=== PATIENT | male | born 1985 | race Caucasian/White ===

== ENCOUNTER 2020-01-23 13:29 | Inpatient (IN) | payer BC ==
[~2020-01-23] VITALS: Ht 175.3 cm; Wt 84.4 kg
[2020-01-23 13:51] VITALS: BP 127/97
[2020-01-23 14:15] LABS: ABSOLUTE NEUTROPHILS 5.5 thou/uL (1.4-8.2); BASOPHILS 0.3 % (0.0-2.0); HEMOGLOBIN 15.3 gm/dL (14.0-18.0); LYMPHOCYTES 10.7 % (24.0-44.0); MCH 33.1 pg (26.0-34.0); MCV 97.2 fL (80.0-100.0); MONOCYTES 6.1 % (1.0-8.0); PLATELET COUNT 206 thou/uL (150-400); POLYS 82.9 % (36.0-66.0); RBC 4.63 mil/uL (4.50-6.00); WBC 6.6 thou/uL (4.0-11.0)
[2020-01-23 14:25] LABS: CALCIUM 9.8 mg/dL (8.5-10.1); CREATININE 1.1 mg/dL (0.7-1.3)
[2020-01-23 14:30] LABS: ALBUMIN 4.5 g/dL (3.4-5.0); TOTAL BILIRUBIN 1.2 mg/dL (0.2-1.0); TOTAL PROTEIN 9.2 g/dL (6.4-8.2)
[2020-01-23 15:56] LABS: URINE BILIRUBIN NEGATIVE (Negative); URINE BLOOD 1+ (Negative); URINE CLARITY CLEAR; URINE COLOR YELLOW; URINE GLUCOSE-RANDOM* NEGATIVE (Negative); URINE KETONES 3+ (Negative); URINE LEUKOCYTES-REFLEX NEGATIVE (Negative); URINE NITRITE-REFLEX NEGATIVE (Negative); URINE PROTEIN (DIPSTICK) 1+ (Negative); URINE SPECIFIC GRAVITY >= 1.030 (1.005-1.035); URINE UROBILINOGEN 0.2 E.U./dl (0.2-1.0)
[2020-01-23 16:02] LABS: AMP/METHAMP Negative (Negative); BARBITURATES Negative (Negative); BENZODIAZEPINES Negative (Negative); COCAINE Negative (Negative); METHADONE Negative (Negative); OPIATES Negative (Negative); PCP Negative (Negative)
[2020-01-23 16:18] LABS: BACTERIA-REFLEX None Seen /HPF (None Seen); CRYSTALS None Seen /LPF (None Seen); SQUAMOUS None Seen /LPF (0-3); URINE RBC None Seen /HPF (0-2); URINE WBC-REFLEX None Seen /HPF (0-5)
[2020-01-23 17:00] LABS: BE(vivo) -11.3 mmol/L (-2 to +3); HCO3 13.2 mmol/L (22.0-26.0); PCO2 26.6 mmHg (35.0-45.0); PO2 108.3 mmHg (80.0-100.0); pH 7.312 (7.360-7.450); sO2 97.6 % (92.0-98.0)
--- NOTE | 2020-01-23 17:03 | EKG ---
[facility] [place] [address] ELECTROCARDIOGRAM REPORT Name: ALLEY ULLOA Room #: [facility].#: [id number] Admission: 01/23/20 Attend Phys: Discharge: Date of : 81 Report #: [id number] THIS REPORT FOR: cc: NASH Flores family physician/PCP NASH - Sandra family physician/PCP Pasquale Amaro MD [facility] THIS REPORT FOR: //name// [facility] ED Test Date: 2020-01-23 Test Time: 13:44:28 Pat Name: ALLEY ULLOA Department: Room: Gender: Licensing Registration Examiner: : 1985 Requested By: Marquise Arroyo Order Number: [id number] MD: Pasquale Amaro Measurements Intervals [place] Rate: 134 P: 82 MT: 129 QRS: 89 QRSD: 85 T: -7 QT: 308 QTc: 460 Interpretive Statements Sinus tachycardia Probable left atrial enlargement Probable left ventricular hypertrophy Baseline wander in lead(s) I,II,aVR,V1,V2 No previous ECG available for comparison Electronically Signed On 01-23-2020 17:02:59 VIDEO TAPE DUPLICATOR by Pasquale Amaro [email or web address] <ELECTRONICALLY SIGNED> By: Pasquale Amaro MD, FACC 01/23/20 1702 1344 1344 Pasquale Amaro MD, FAC /EPI
[2020-01-23 19:14] VITALS: BP 115/101
[2020-01-23 19:27] VITALS: BP 115/101
--- NOTE | 2020-01-24 00:21 | NUR ---
PATIENT IS A NEW ADMISSION TO THE UNIT THIS SHIFT. HE ARRIVED VIA CART FROM THE ER AND WAS ABLE TO AMBULATE TO THE BED UNASSISTED WITHOUT INCIDENT. PATIENT IS ALERT AND ORIENTED BUT HIGHLY ANXIOUS. PATIENT WAS RELUCTANT TO STAY AT HOSPITAL AND NEEDED TO CONVERSE WITH ELECTROMECHANICAL TECHNICIAN. HE DID AGREE TO STAY IN HOSPITAL AND RECEIVE TREATMENT. DURING ADMISSION PATIENT STATED FEELING BODY ACHES AND CHILLS PRIOR TO COMING TO HOSPITAL WELL THE KNOWN ABOUT NAUSEA. CLINICAL PHARMACY SPECIALIST CONTACTED WITH ORDERS RECEIVED FOR COVID SWAB. PATIENT IS UNABLE TO BE MOVED PRESENTLY DUE TO COVID UNIT HAVING NO VACANCIES. PATIENT EXHIBITS TREMORS AND IS GOING THROUGH ALCOHOL WITHDRAWAL. THIS NURSE TO FULLY COMPLETE ADMISSION PROCESS AND INITIATE PLAN OF CARE. CARE HAS BEEN TRANSFERRED TO RN [facility] DUE THIS NURSES INABILITY TO WEAR N95.
[2020-01-24 04:17] VITALS: BP 108/70
--- NOTE | 2020-01-24 04:23 | NUR ---
Assumed pt care at midnight. On assessment at this time pt is A/OX4,resting calmly,drowsy,no tremors noted.Denies any nausea or headache and would like to go back to sleep for a while.Assessment as charted. Fall precautions implemented,pt agrees to call for help before getting out of bed. IVF infusisng via RAC w/o any problems noted. SR on telemetry. Covid results still pending;proper PPE worn before entering pt's room.
[2020-01-24 06:56] LABS: ALBUMIN 3.6 g/dL (3.4-5.0); CALCIUM 8.5 mg/dL (8.5-10.1); CREATININE 1.1 mg/dL (0.7-1.3); POTASSIUM 3.8 mmol/L (3.5-5.1)
--- NOTE | 2020-01-24 07:12 | NUR ---
ASSESSED CIWA FOR 4W RN EVERY 2-3 HOURS. ATIVAN GIVEN PER PROTOCOL. PATIENT LESS ANXIOUS TO LEAVE. STATES JUST WANTS TO KNOW WHAT IS GOING ON. THINKS HAS BEEN DREAMING OR THINKING ABOUT PROGRAM TO GET OFF ETOH BUT STATES IS CONFUSED ABOUT WHAT IS HAPPENING TO HIM. IS A/O X4 BUT UNSURE OF REASON FOR HOSPITAL STAY AND WHAT WILL HAPPEN AFTER HIS STAY.
[2020-01-24 08:20] VITALS: BP 118/78
--- NOTE | 2020-01-24 11:28 | NUR ---
LONG DISCUSSION THIS AM ON LIFESTYLE AND COPING MECHANISM DURING COVID OTHER THEN DRINKING. HE IS VERY HYPER FOCUSED ON HIS HEALTH NOW AND LABS SO EXPLAINED TO HIM THAT THIS WILL NOT CONTINUE TO REBOUND IF HE CONTINUES TO DRINK VODKA IN LARGE AMOUNTS EVERYDAY, SOMEWHAT OPEN TO THE TOPIC BUT A DISCONNECT IN CORRELATION ON DRINKING AND POOR OUTCOMES STILL REMAIN. DENIES AND TREMORS, NONE OBSERVED. CWAL OF =1 FOR ME, VERY CALM OVERALL AND SLEEPING THIS AM. EKG IN WNL, NSR.
[2020-01-24 12:00] VITALS: BP 125/79
[2020-01-24 17:00] VITALS: BP 117/79
--- NOTE | 2020-01-24 17:00 | NUR ---
RESTING WITH EYES CLOSED, OPENS HIS EYES TO AROUSAL AND QUESTIONS. DENIES ANY PAIN, NO TREMORS CWAL=2 AT THIS TIME, BLOOD PRESSURES STABALIZED. AT BEDSIDE.
[2020-01-24 20:25] VITALS: BP 122/95
[2020-01-25 03:27] VITALS: BP 116/83
--- NOTE | 2020-01-25 06:24 | NUR ---
CARE ASSUMED 1900. PT SCORES 0 ON CIWA ASSESSMENTS. VITALS STABLE. PT HAD A SHOWER. NO C/O CHEST PAIN , NAUSEA OR VOMITING. C/O X1 OD DIZZINESS OTHERWISE NORMAL GAIT. AT AROUND 3 AM, PT STATED THAT HE DOES NOT WANT TO CONTINUE WITH IV FLUIDS BECAUSE HE IS DRINKING AND EATING FINE CURRENTLY AND READY DO DC. WILL CONTINUE WITH POCC
[2020-01-25 08:50] VITALS: BP 135/63
[2020-01-25] MEDS ORDERED: CHLORDIAZEPOXIDE5 M2 PO (09:54)
[2020-01-25] MEDS ORDERED: PRENATAL PO (09:54)
[2020-01-25] MEDS ORDERED: VITAMIN B-1100 M2 PO (09:54)
[2020-01-25 10:26] VITALS: BP 135/63
[2020-01-25 10:34] VITALS: BP 135/63
--- NOTE | 2020-01-25 10:40 | NUR ---
Ethol tx resources and program info noted in the pt's dc instructions should he wish to pursue inpt or outpt tx.
== END 2020-01-25 12:45 | disposition home or self-care (01) | DRG 897 ==
LOC: ER 13:29 → EROBS 18:51 → 2N 18:51
PROVIDERS: Physician Assistant; ADMIT Hospitalist; ATTEND Hospitalist
DX: F10.239 Alcohol dependence with withdrawal, unspecified (principal); E87.2 Acidosis; K76.0 Fatty (change of) liver, not elsewhere classified; F41.9 Anxiety disorder, unspecified; Z20.828 Contact with and (suspected) exposure to other viral communicable diseases; Z87.891 Personal history of nicotine dependence; Z79.899 Other long term (current) drug therapy
CPT/HCPCS: 10081

== ENCOUNTER 2020-08-22 02:24 | Emergency (ER) | payer BC ==
[~2020-08-22] VITALS: Ht 162.6 cm; Wt 68.0 kg
[~2020-08-22 02:24] MED LIST: CHLORDIAZEPOXIDE5 M2 PO; PRENATAL PO; VITAMIN B-1100 M2 PO
[2020-08-22 02:59] LABS: ABSOLUTE NEUTROPHILS 4.6 thou/uL (1.4-8.2); BASOPHILS 0.3 % (0.0-2.0); EOSINOPHILS 1.5 % (0.0-3.0); HEMATOCRIT 43.9 % (42.0-52.0); HEMOGLOBIN 15.1 gm/dL (14.0-18.0); LYMPHOCYTES 28.1 % (24.0-44.0); MCH 32.7 pg (26.0-34.0); MCHC 34.3 g/dL (28.0-37.0); MCV 95.3 fL (80.0-100.0); MONOCYTES 5.5 % (1.0-8.0); PLATELET COUNT 339 thou/uL (150-400); POLYS 64.6 % (36.0-66.0); RBC 4.61 mil/uL (4.50-6.00); RDW 13.4 % (10.5-14.5); WBC 7.2 thou/uL (4.0-11.0)
[2020-08-22 03:06] LABS: ANION GAP 12 mmol/L (7-16); BUN 11 mg/dL (7-18); CALCIUM 8.1 mg/dL (8.5-10.1); CHLORIDE 106 mmol/L (98-107); CO2 26 mmol/L (21-32); CREATININE 1.1 mg/dL (0.7-1.3); GLUCOSE 117 mg/dL (74-106); POTASSIUM 3.6 mmol/L (3.5-5.1); SODIUM 144 mmol/L (136-145)
[2020-08-22] MEDS ORDERED: PAROXETINE HCL10 MG PO (03:13)
[2020-08-22] MEDS ORDERED: BYSTOLIC 5 MG5 M1 PO (03:13)
[2020-08-22] MEDS ORDERED: NALTREXONE HCL50 MG PO (03:14)
[2020-08-22 03:15] LABS: TROPONIN-I <0.06 ng/mL (<0.06)
[2020-08-22 06:28] VITALS: BP 142/81
[2020-08-22] MEDS ORDERED: MOBIC15 MG PO (06:29)
--- NOTE | 2020-08-22 07:23 | EKG ---
[address] [address] ELECTROCARDIOGRAM REPORT Name: ELISE DEL VALLEAUXALLEY Room #: [facility]#: [id number] Admission: 08/22/20 Attend Phys: Discharge: 08/22/20 Date of : 81 Report #: [id number] [facility] ED Test Date: 2020-08-22 Test Time: 02:37:13 Pat Name: ALLEY ULLOA Department: Room: Gender: Analysis Lead: MIRTA : 1985 Requested By: Sarita Tate Order Number: [id number] MD: Pasquale Amaro Measurements Intervals [place] Rate: 105 P: -14 [place]: 139 QRS: 5 QRSD: 88 T: 63 QT: 344 QTc: 455 Interpretive Statements Sinus tachycardia Compared to ECG 01/23/2020 13:44:28 No significant changes Electronically Signed On 08-22-2020 7:23:30 CDT by Pasquale Amaro [email or web address] <ELECTRONICALLY SIGNED> By: Pasquale Amaro MD, [facility] 08/22/20 [phone] Pasquale Amaro MD, FACC /EPI
== END 2020-08-22 06:35 | disposition home or self-care (01) ==
LOC: ER 02:24
PROVIDERS: Student in an Organized Health Care Education/Training Program
DX: R07.89 Other chest pain (principal)